=== PATIENT | female | born 1980 | race Caucasian/White ===

== ENCOUNTER 2016-12-24 00:05 | Emergency (ER) | payer BC, OTHER ==
[2016-12-24 00:20] VITALS: BP 113/80
[2016-12-24] MEDS ORDERED: LORazepam 2 MG/ML MDV IVPUSH ONE (00:21)
[2016-12-24] MEDS ORDERED: Ketorolac 30 MG/ML SDV IVPUSH ONE (00:21)
[2016-12-24] MEDS ORDERED: diphenhydrAMINE 50 MG/ML SDV IVPUSH ONE (00:21)
[2016-12-24] MEDS ORDERED: Ondansetron 4 MG/2 ML SDV IVPUSH ONE (00:22)
[2016-12-24] MEDS ORDERED: Sodium Chloride 0.9% 1,000 ML IV ONE (00:22)
[2016-12-24] MEDS ORDERED: Sodium Chloride 0.9% 10 ML Syringe FLUSH PRN (00:22)
--- NOTE | 2016-12-24 00:41 | EDM.PDOC ---
ED HPI GENERAL MEDICAL PROBLEM - General Chief Complaint: General Stated Complaint: migraine headache Time Seen by Provider: 12/24/16 00:16 Source of Information: Reports: Patient History Limitations: Reports: No Limitations - History of Present Illness INITIAL COMMENTS - FREE TEXT/NARRATIVE: The patient presents with complaint of a migraine with throbbing in the right occipital region, right frontotemporal region, and pain behind the right eye. She denies visual changes and auras. She has mild nausea but denies emesis. She has photophobia and phonophobia. She reports she has had the migraine all day and that it worsened tonight. She denies other symptoms or complaints. She is tearful and crying during history and physical. She denies other symptoms or complaints. 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 ED EXAM, GENERAL - Physical Exam Exam: See Below Exam Limited By: No Limitations General Appearance: Alert, WD/WN, Other (Crying on exam.) Eye Exam: Bilateral Eye: EOMI, Normal Inspection, PERRL Ears: Normal External Exam, Normal Canal, Hearing Grossly Normal, Normal TMs Ear Exam: Bilateral Ear: Auricle Normal, Canal Normal, TM normal Nose: Normal Inspection, Normal Mucosa, No Blood Throat/Mouth: Normal Inspection, Normal Lips, Normal Teeth, Normal Gums, Normal Oropharynx, Normal Voice, No Airway Compromise Head: Atraumatic, Normocephalic Neck: Normal Inspection, Supple, Non-Tender, Full Range of Motion. No: Lymphadenopathy (L), Lymphadenopathy (R), Tender Lateral, Tender Midline Respiratory/Chest: No Respiratory Distress, Lungs Clear, Normal Breath Sounds, No Accessory Muscle Use, Chest Non-Tender Cardiovascular: Normal Peripheral Pulses, Regular Rate, Rhythm, No Edema, No Gallop, No Murmur, No Rub Peripheral Pulses: 2+: Radial (L), Radial (R) GI/Abdominal: Normal Bowel Sounds, Soft, Non-Tender, No Organomegaly, No Distention Back Exam: Normal Inspection, Full Range of Motion. No: CVA Tenderness (L), Paraspinal Tenderness Extremities: Normal Inspection, Normal Range of Motion, Non-Tender, No Pedal Edema, Normal Capillary Refill Neurological: Alert, Oriented, CN II-XII Intact, Normal Cognition, Normal Gait, Normal Reflexes, No Motor/Sensory Deficits, Other (GCS 15. PERRLA. EOMI. No nystagmus. VF and VA normal. No pronator drift of arms. No dysmetria. Tone normal. No clonus or spasticity. Babinski absent bilaterally. Speech normal.) Skin Exam: Warm, Intact, Normal Color, No Rash Lymphatic: No Adenopathy Course - Vital Signs Last Recorded V/S: Last Vital Signs Temp 36.9 C 12/24/16 00:16 Pulse 82 12/24/16 00:16 Resp 20 12/24/16 00:16 BP 113/80 12/24/16 00:16 Pulse Ox 100 12/24/16 00:16 - Orders/Labs/Meds Orders: Active Orders 24 hr Category Date Time Status Peripheral IV Care [RC] . DIRECTED Care 12/24/16 00:23 Active Sodium Chloride 0.9% [Saline Flush] Med 12/24/16 00:22 Active 10 ml FLUSH ASDIRECTED PRN Peripheral IV Insertion Adult [OM.PC] Routine Oth 12/24/16 00:22 Ordered Medication Orders Sodium Chloride (Saline Flush) 10 ml FLUSH ASDIRECTED PRN PRN Reason: Keep Vein Open Last Admin: 12/24/16 00:30 Dose: 10 ml Meds: Medications Generic Name Dose Route Start Last Admin Trade Name Freq PRN Reason Stop Dose Admin Sodium Chloride 10 ml 12/24/16 00:22 12/24/16 00:30 Saline Flush FLUSH 10 ml ASDIRECTED PRN Administration Keep Vein Open Discontinued Medications Generic Name Dose Route Start Last Admin Trade Name Freq PRN Reason Stop Dose Admin Diphenhydramine HCl 25 mg 12/24/16 00:21 12/24/16 00:37 Benadryl IVPUSH 12/24/16 00:22 25 mg ONETIME ONE Administration Sodium Chloride 1,000 mls @ 1,000 mls/hr 12/24/16 00:22 12/24/16 00:40 Normal Saline IV 12/24/16 01:21 1,000 mls/hr .BOLUS ONE Administration Ketorolac Tromethamine 30 mg 12/24/16 00:21 12/24/16 00:36 Toradol IVPUSH 12/24/16 00:22 30 mg ONETIME ONE Administration Lorazepam 2 mg 12/24/16 00:21 12/24/16 00:40 Ativan IVPUSH 12/24/16 00:22 2 mg ONETIME ONE Administration Ondansetron HCl 4 mg 12/24/16 00:22 12/24/16 00:33 Zofran IVPUSH 12/24/16 00:23 4 mg ONETIME ONE Administration Departure - Departure Time of Disposition: 01:45 Disposition: Home, Self-Care 01 Clinical Impression: Migraine Qualifiers: Migraine type: without aura Status migrainosus presence: without status migrainosus Intractability: not intractable Qualified Code(s): G43.009 - Migraine without aura, not intractable, without status migrainosus - Discharge Information Instructions: Migraine Headache Forms: ED Department Discharge Additional Instructions: 1. Toradol 30 mg IV in ER. 2. Ativan 2 mg IV in ER. 3. Benadryl 25 mg IV in ER. 4. Zofran 4 mg IV in ER. 5. NS 1 liter bolus IV in ER. 6. Symptoms improved significantly prior to discharge. 7. OTC ibuprofen 400-800 mg every 6 hours as needed for migraine at home beginning at 6:00 am on 12/24/2016. 8. Follow up with PCP next week to discuss migraine abortive and prophylactic medications. 9. Return to ER with increased/refractory/severe migraine, visual changes, speech difficulty, facial droop, focal weakness or numbness or tingling, mental status changes, or other emergent concerns. - My Orders Last 24 Hours: My Active Orders 12/24/16 00:22 Sodium Chloride 0.9% [Saline Flush] 10 ml FLUSH ASDIRECTED PRN Peripheral IV Insertion Adult [OM.PC] Routine 12/24/16 00:23 Peripheral IV Care [RC] . DIRECTED - Assessment/Plan Last 24 Hours: My Active Orders 12/24/16 00:22 Sodium Chloride 0.9% [Saline Flush] 10 ml FLUSH ASDIRECTED PRN Peripheral IV Insertion Adult [OM.PC] Routine 12/24/16 00:23 Peripheral IV Care [RC] . DIRECTED Assessment:: Migraine. Plan: 1. Toradol 30 mg IV in ER. 2. Ativan 2 mg IV in ER. 3. Benadryl 25 mg IV in ER. 4. Zofran 4 mg IV in ER. 5. NS 1 liter bolus IV in ER. 6. Symptoms improved significantly prior to discharge. 7. OTC ibuprofen 400-800 mg every 6 hours as needed for migraine at home beginning at 6:00 am on 12/24/2016. 8. Follow up with PCP next week to discuss migraine abortive and prophylactic medications. 9. Return to ER with increased/refractory/severe migraine, visual changes, speech difficulty, facial droop, focal weakness or numbness or tingling, mental status changes, or other emergent concerns.
== END 2016-12-24 02:15 | disposition home or self-care (01) ==
LOC: LL.ED 00:05
DX: G43.009 Migraine without aura, not intractable, without status migrainosus (principal)
CPT/HCPCS: 96361; 96374; 96375; 99283; J1200; J1885; J2060; J2405; J7030; J7050